=== PATIENT | male | born 1970 | race Caucasian/White ===

== ENCOUNTER → 2021-03-04 18:40 | Outpatient (ROUT) | payer OTHER, SELFPAY ==
[2021-03-04 19:41] LABS: Cholesterol 136 mg/dL (140-199); Glucose 84 mg/dL (70-100); HDL Cholesterol 48 mg/dL (40-60); LDL Cholesterol Calculated 68 mg/dL (<100); Triglycerides 101 mg/dL (35-150)
[2021-03-04 19:42] LABS: Hemoglobin A1C% w Est Avg Glu 5.1 % (4.0-6.0)
[2021-03-07 10:50] LABS: Prostate Specific Antigen 1.87 ng/mL (0.10-4.00)
== END ==
PROVIDERS: Visit Provider Internal Medicine
DX: Z00.00 Encounter for general adult medical examination without abnormal findings (principal); E78.2 Mixed hyperlipidemia; Z80.42 Family history of malignant neoplasm of prostate
CPT/HCPCS: 80061; 82947; 83036; 84153

== ENCOUNTER → 2022-09-29 16:28 | Outpatient (CLI) | payer OTHER, SELFPAY ==
[2022-09-29 17:26] LABS: Cholesterol 169 mg/dL (140-199); Glucose 96 mg/dL (70-100); HDL Cholesterol 56 mg/dL (40-60); LDL Cholesterol Calculated 93 mg/dL (<100); Triglycerides 98 mg/dL (35-150)
[2022-09-29 17:58] LABS: Prostate Specific Antigen 2.59 ng/mL (0.10-4.00)
== END ==
PROVIDERS: PCP Internal Medicine; Referring Provider Internal Medicine; Visit Provider Internal Medicine
DX: Z00.00 Encounter for general adult medical examination without abnormal findings (principal); Z80.42 Family history of malignant neoplasm of prostate
CPT/HCPCS: 36415; 80061; 82947; 84153

== ENCOUNTER → 2023-01-09 08:03 | Outpatient (CLI) | payer OTHER, SELFPAY ==
[2023-01-11 09:14] LABS: PSA Free % 35.6 % (.); PSA, Total 0.9 ng/mL (0.0-4.0)
== END ==
PROVIDERS: PCP Internal Medicine; Referring Provider Internal Medicine; Visit Provider Internal Medicine
DX: R97.20 Elevated prostate specific antigen [PSA] (principal)
CPT/HCPCS: 36415; 84153; 84154

== ENCOUNTER → 2023-10-24 15:50 | Outpatient (CLI) | payer OTHER, SELFPAY ==
[2023-10-24 17:53] LABS: Cholesterol 155 mg/dL (140-199); Glucose 92 mg/dL (70-100); HDL Cholesterol 46 mg/dL (40-60); LDL Cholesterol Calculated 87 mg/dL (<100); Triglycerides 108 mg/dL (35-150)
[2023-10-24 18:24] LABS: Prostate Specific Antigen Scrn 2.08 ng/mL (0.1-4.0)
== END ==
PROVIDERS: PCP Internal Medicine; Referring Provider Internal Medicine; Visit Provider Internal Medicine
DX: Z00.00 Encounter for general adult medical examination without abnormal findings (principal); Z12.5 Encounter for screening for malignant neoplasm of prostate; Z80.42 Family history of malignant neoplasm of prostate
CPT/HCPCS: 36415; 80061; 82947; G0103

== ENCOUNTER → 2024-12-04 08:39 | Outpatient (CLI) | payer BC, SELFPAY ==
[2024-12-04 10:00] LABS: Cholesterol 152 mg/dL (140-199); Glucose 102 mg/dL (70-100); HDL Cholesterol 51 mg/dL (40-60); LDL Cholesterol Calculated 87 mg/dL (<100); Triglycerides 72 mg/dL (35-150)
[2024-12-04 10:30] LABS: Prostate Specific Antigen Scrn 2.15 ng/mL (0.1-4.0)
== END ==
PROVIDERS: PCP Internal Medicine; Referring Provider Internal Medicine; Visit Provider Internal Medicine
DX: Z00.00 Encounter for general adult medical examination without abnormal findings (principal); Z12.5 Encounter for screening for malignant neoplasm of prostate
CPT/HCPCS: 36415; 80061; 82947; G0103